=== PATIENT | female | born 1975 | race Caucasian/White ===

== ENCOUNTER 2024-02-29 16:14 | Emergency (ER) | payer OTHER, SELFPAY ==
[2024-02-29 16:20] VITALS: BP 132/93
[2024-02-29 16:56] LABS: % Basophils 0.7 % (0-2); % Eosinophils 1.1 % (0-6); % Immature Granulocytes 0.3 % (0-0.5); % Lymphocytes 24.1 % (20.5-51.1); % Monocytes 5.2 % (1.7-9.3); % Neutrophils 68.6 % (42.2-75.2); Absolute Basophils 0.1 10^3/uL (0-0.2); Absolute Eosinophils 0.1 10^3/uL (0-0.7); Absolute Lymphocytes 2.5 10^3/uL (1.2-3.4); Absolute Monocytes 0.5 10^3/uL (0.1-0.6); Hematocrit 40.8 % (37.0-47.0); Hemoglobin 13.8 g/dL (12.0-16.0); Mean Corp Hgb Conc. 33.8 g/dL (33.0-37.0); Mean Corpuscular Hgb 32.5 pg (27.0-31.0); Mean Platelet Volume 9.1 fL (7.4-10.4); Nucleated Red Blood Cells % 0 %; Platelet Count 328 10^3/uL (130-400); Red Blood Cell Count 4.25 10^6/uL (4.20-5.40); Red Cell Dist. Width 12.3 % (11.5-14.5); White Blood Cell Count 10.2 10^3/uL (4.8-10.8)
[2024-02-29 17:10] LABS: HCG, Serum Qualitative Screen Negative
[2024-02-29 17:11] LABS: Lactic Acid 0.7 mmol/L (0.7-2.0)
[2024-02-29 17:14] LABS: ALT (SGPT) 13 U/L (0-35); AST (SGOT) 23 U/L (14-36); Albumin 4.2 g/dl (3.5-5.0); Alkaline Phosphatase 83 U/L (38-126); Blood Urea Nitrogen 18 mg/dl (7-17); Calcium 9.1 mg/dl (8.4-10.2); Carbon Dioxide 21 mmol/L (22-30); Chloride 105 mmol/L (98-107); Glucose 87 mg/dl (70-99); Lipase 161 U/L (23-300); Potassium 4.4 mmol/L (3.5-5.1); Sodium 136 mmol/L (135-145); Total Bilirubin 0.4 mg/dl (0.2-1.3); eGFR > 60.00
--- NOTE | 2024-02-29 19:46 | ED.GENMED ---
History of Present Illness
General
Chief Complaint: Abdominal Pain
Source: patient
Exam Limitations: none
Time Seen by Provider: 02/29/24 19:12
Nursing documentation reviewed up to this point in time: agreed with
History of Present Illness
History of Present Illness:
48-year-old female presenting to the emergency department for evaluation of right lower abdominal pain. Patient reports 3 days of pain in her right lower abdomen which is relatively constant nature although with intermittent sharp pains. Patient
denies any radiation into her back or groin. Patient does report associated nausea and anorexia although denies any vomiting. Patient denies any dysuria. No diarrhea. No fevers or chills.
She does feel that pain is worse with movement and bumps while driving in the car.
Patient was seen by her primary care today who referred her to the emergency department for further evaluation given concern for possible cholecystitis vs appendicitis vs diverticulitis. Patient has no chest pain or shortness of breath.
Patient has no history of abdominal surgeries.
Review of Systems
Review of Systems
Allergies reviewed?: Yes
All Other Systems: ROS reviewed and negative except as documented in HPI and ROS
Phy Exam
Physical Exam
Physical Exam:
Vitals: Hypertensive, otherwise vital signs stable. Afebrile
General: Patient is well appearing, no acute distress. Nontoxic appearing
Skin: Warm and dry, no rashes or lesions
Head: Normocephalic, atraumatic
Eyes: Sclera nonicteric. EOMs intact. No nystagmus.
Throat: Protecting airway
Neck: Normal ROM, no cervical spine tenderness, no meningismus
Cardiac: Regular rate and rhythm, no murmurs.
Pulm: Normal respiratory effort, no wheezes, rales, rhonchi heard on exam.
Abdomen: Abdomen soft. Moderate tenderness in right lower quadrant without rebound tenderness or guarding. No CVA tenderness.
Extremities: No evidence of cyanosis or edema. Palpable DP pulses bilaterally
Neuro: AAOx3. Grossly intact.
Psychiatric: Normal affect.
Course
Orders/Labs/Results
Orders:
Orders
02/29/24 16:23
Test Result ONCE
02/29/24 16:41
Complete Blood Count/With Diff Urgent
Comprehensive Metabolic Panel Urgent
HCG, Serum Qualitative Screen Urgent
Lactate Level [Lactic Acid] Urgent
Lipase Urgent
02/29/24 19:22
CT Abd/pelvis W Iv Cont Urgent
Comment:
Reason For Exam: RLQ pain, +nausea
0.9% Sodium Chloride 1000 ml [Nss] 1,000 ml IV BOLUS
Ketorolac [Toradol] 15 mg IV NOW STA
02/29/24 22:17
Urinalysis Reflex To Culture Urgent
Date Specimen was Collected: 02/29/24
Time Specimen was Collected: 20:12
Urine Microscopic Reflex Cult Urgent
Urine Culture Urgent
KAL Source: U
Specimen Description:
Date Specimen was Collected: 02/29/24
Time Specimen was Collected: 20:12
Abnormal Lab Results
02/29/24 02/29/24
16:41 22:17
MCH 32.5 H pg
(27.0-31.0)
Absolute Neuts (auto) 7.0 H 10^3/uL
(1.4-6.5)
Carbon Dioxide 21 L mmol/L
(22-30)
BUN 18 H mg/dl
(7-17)
Leukocyte Esterase Rfl 1+ A
(Negative)
Urine Bacteria (Reflex) Few A
(Negative)
02/29/24 16:41
02/29/24 16:41
Vital Signs
Initial and Last Documented VS:
Initial Vital Signs
Temp Pulse Resp BP Pulse Ox
97.8 F 98 20 132/93 97
02/29/24 16:20 02/29/24 16:20 02/29/24 16:20 02/29/24 16:20 02/29/24 16:20
Last Documented Vital Signs
Temp Pulse Resp BP Pulse Ox
97.8 F 90 17 134/85 97
02/29/24 16:20 02/29/24 22:26 02/29/24 22:26 02/29/24 22:26 02/29/24 16:20
MDM/Problems Addressed
Differential Diagnosis Includes:
Not limited to: Appendicitis, cholecystitis, obstruction, constipation, ovarian cyst, ovarian torsion, pyelonephritis, kidney stone, etc.
MDM/Problems Addressed:
48-year-old female with 3 days of right lower quadrant abdominal pain associated with nausea, anorexia. No fevers, vomiting, urinary symptoms. Seen by PCP and sent to ER to rule out acute abdominal emergencies. Hypertensive on arrival, otherwise
stable vital signs. Patient is afebrile. Physical exam as above. Patient's abdomen is soft with moderate abdominal tenderness in right lower quadrant. No true pelvic tenderness. No rebound tenderness or guarding. Cardio/pulmonary assessment
unremarkable. Labs initiated in triage without any clinically significant abnormalities. hCG negative. Patient overall very well-appearing. Lower suspicion for gallbladder/pelvic etiology given abdominal exam. Will obtain CT scan for further
evaluation. Toradol, IV fluids. Workup in progress.
Update: On reassessment�patient is feeling improvement in pain following Toradol. CT report reviewed which does show mild acute epiploic appendagitis in right lower abdomen. No other acute findings. Discussed findings with patient�this would
explain patient's symptoms. Urine obtained without any signs of infection. Patient overall very well-appearing and stable for discharge home. Advised Tylenol/Motrin as needed for discomfort. Close return precautions discussed. Patient will
follow with PCP. Case discussed with attending physician
Chronic conditions affecting care:
N/A
Acute Exacerbation and/or Progression of Chronic Illness:
N/A
*Radiology
Radiology exam reviewed: radiology read reviewed
*Pulse Oximetry
Patient hypoxic: no
*EKG
Interpreted by ED Provider?: NA
*Cut Off Saw Operator Pipe Blanks Interpretation
Rate: Cut Off Saw Operator Pipe Blanks- N/A
*Critical Care Note
Total Time (30-74mins, 75-104mins- exclusive of procedures): Not Applicable
ED Attending Note
-
Portions of this chart may have been created with voice recognition software.� Occasional wrong word or��sound alike� substitutions may have occurred due to the inherent limitations of voice recognition software.
Discharge Plan
Departure
Patient Disposition: Home (Routine Discharge)
Date of Disposition: 02/29/24
Time of Disposition: 22:31
Patient with high blood pressure during this ER visit?: Yes
Condition: Good
Discharge Problem:
Epiploic appendagitis
Instructions: Abdominal pain in adults - ED discharge instructions, BLOOD PRESSURE
Prescriptions:
No Action
topiramate 100 MG tablet
100 mg PO HS
bupropion HCl 300 MG tablet extended release 24 hr
300 mg PO DAILY
duloxetine 30 MG capsule,delayed release(DR/EC)
90 mg PO HS
acetaminophen 325 MG tablet
650 mg PO Q4HPRN PRN (Reason: mild pain) 0RF
ibuprofen 600 MG tablet
600 mg PO Q6HPRN PRN (Reason: moderate pain) 10 Days 0RF
ketorolac 10 mg tablet
10 mg PO TID PRN (Reason: Pain) Qty: 10 0RF
Referrals:
[facility], [Other]
Yanick Matthews MD [Family Provider] -
Activity Restrictions/Additional Instructions:
Return to the emergency department any fevers, chills, persistent nausea/vomiting, anorexia, intractable abdominal pain, worsening in current symptoms, or any other concern
-As discussed�your CT scan showed acute epiploic appendagitis in your right lower abdomen.
-You should continue to take Tylenol and/or Motrin as needed for discomfort. Stay well-hydrated.
-Follow-up with your primary care for further evaluation/management and to ensure that symptoms are improving
Monitor your symptoms closely return to the emergency department with any acute worsening/new symptoms or any other concerns
Interventions
Interventions:
*Risk Screen - Suicide Last Done: 02/29/24 19:20
*General Assessment Last Done: 02/29/24 16:20
*Neglect/Abuse Screening Last Done: 02/29/24 19:20
ED- Fall Risk Assessment Last Done: 02/29/24 21:12
*ED COVID-19 Vaccine History Last Done: 02/29/24 19:20
*Nursing Disposition Last Done: 02/29/24 22:46
OP-Nomeds-Vzlkxjnfwl Assessment Last Done: 02/29/24 19:20
Discharge Date and Time
Discharge Date/Time: 02/29/24 22:46
Print Language: GEORGIAN
[2024-02-29] MEDS: TORADOL 15 MG IV (19:52)
[2024-02-29] MEDS: NSS 1000 IV (19:53)
[2024-02-29 19:54] VITALS: BMI 37.8
[2024-02-29 22:25] LABS: Urine Albumin Negative (Neg - Trace); Urine Bilirubin Negative (Negative); Urine Character Clear (Clear); Urine Color Yellow; Urine Glucose Negative (Negative); Urine Ketone Negative (Negative); Urine Leukocyte 1+ (Negative); Urine Nitrite Negative (Negative); Urine Occult Blood Negative (Negative); Urine Urobilinogen Negative (Neg - 1+)
[2024-02-29 22:26] VITALS: BP 134/85
[2024-02-29 22:33] LABS: Urine Mucus Few; Urine Squamous Cell >30 /LPF (Few)
[2024-02-29 22:34] LABS: Urine Bacteria Few (Negative); Urine Red Blood Cell 0-2 /HPF (0-2)
== END 2024-02-29 22:46 | disposition home or self-care (01) ==
LOC: EMR 16:14
PROVIDERS: Physician Assistant; Student in an Organized Health Care Education/Training Program; EMERGENCY PHYSICIAN Emergency Medicine; FAMILY PHYSICIAN Internal Medicine
DX: K63.89 Other specified diseases of intestine (principal); R03.0 Elevated blood-pressure reading, without diagnosis of hypertension
CPT/HCPCS: 96374; 96361; 99284; 74177; 80053; 81003; 81015; 83605; 83690; 84703; 85025; 87086; Q9967